=== PATIENT | female | born 1980 | race Caucasian/White ===

== ENCOUNTER 2020-05-25 20:18 | Emergency (ER) | payer BC, OTHER ==
[2020-05-25 20:39] VITALS: PULSE 68; TEMP 98.6
[2020-05-25 21:14] VITALS: BP 142/92
[2020-05-25 21:21] VITALS: BMI 36.9
[2020-05-25] MEDS ORDERED: KETOROLAC TROMETHAMINE 60 MG/2 ML VIAL IM ONE (21:41)
[2020-05-25] MEDS ORDERED: KETOROLAC TROMETHAMINE 60 MG/2 ML VIAL ONE (21:52)
== END 2020-05-25 22:26 | disposition home or self-care (01) ==
LOC: FER 20:18
PROC: 3E0233Z Introduction of Anti-inflammatory into Muscle, Percutaneous Approach (ICD-10-PCS; principal; 2020-05-25)
DX: S83.91XA Sprain of unspecified site of right knee, initial encounter (principal)
CPT/HCPCS: 73560-TC-RT-FY; 99284-25

== ENCOUNTER 2021-04-06 06:23 | Day surgery (SDC) | payer BC ==
[2021-04-04 10:10] VITALS: BMI 34.3
[2021-04-06] MEDS ORDERED: BUPIVACAINE HCL/PF 0.25% (2.5MG/ML) 10 ML VIAL ONE (07:40)
[2021-04-06] MEDS ORDERED: VANCOMYCIN 1,000 MG VIAL (RESTRICTED TO ID ONLY) ONE (07:40)
[2021-04-06] MEDS ORDERED: EPINEPHrine 1:1,000 1,000 MCG/ML ML ONE (07:40)
[2021-04-06] MEDS ORDERED: BUPIVACAINE LIPOSOME/PF (EXPAREL) 266 MG/20 ML VIAL ONE (07:44)
[2021-04-06] MEDS ORDERED: BUPIVACAINE HCL 50 ML ONE (07:45)
[2021-04-06] MEDS ORDERED: MIDAZOLAM HCL 2 MG/2 ML SINGLE DOSE VIAL ONE (07:45)
[2021-04-06] MEDS ORDERED: fentaNYL CITRATE 250 MCG/5 ML VIAL ONE (07:59)
[2021-04-06] MEDS ORDERED: SUCCINYLCHOLINE CHLORIDE 200 MG/10 ML SYRINGE ONE (07:59)
[2021-04-06] MEDS ORDERED: LIDOCAINE HCL/PF 2% SDV 5ML VIAL ONE (07:59)
[2021-04-06] MEDS ORDERED: LIDOCAINE HCL 2% JELLY (5 ML/TUBE) ONE (07:59)
[2021-04-06] MEDS ORDERED: PROPOFOL 20 ML ONE ×6 (07:59→11:24)
[2021-04-06] MEDS ORDERED: ALBUTEROL SO4 HFA INHALER IH ONE (07:59)
[2021-04-06] MEDS ORDERED: KETOROLAC TROMETHAMINE 30 MG/1 ML VIAL ONE (08:17)
[2021-04-06] MEDS ORDERED: DEXAMETHASONE SOD PHOSPHATE 4 MG/1 ML VIAL ONE (08:17)
[2021-04-06] MEDS ORDERED: ONDANSETRON 4 MG/2 ML VIAL ONE (08:17)
[2021-04-06] MEDS ORDERED: ceFAZolin SODIUM 1 GM VIAL ONE (08:17)
[2021-04-06] MEDS ORDERED: TRANEXAMIC ACID 1000 MG/10 ML VIAL ONE (09:05)
[2021-04-06] MEDS ORDERED: SCOPOLAMINE HYDROBROMIDE 1 PATCH PATCH.TD72 ONE (09:14)
[2021-04-06] MEDS ORDERED: SEVOFLURANE 250 ML BTL ONE (10:57)
[2021-04-06] MEDS ORDERED: METOPROLOL TARTRATE 5 MG/5 ML VIAL ONE (12:35)
[2021-04-06] MEDS ORDERED: GUM MASTIC/STORAX/MSAL/ALCOHOL 1 DRP DROPSBTL MC ONE (12:51)
[2021-04-06] MEDS ORDERED: oxyCODONE HCL 5 MG TABLET PO PRN ×2 (13:25)
[2021-04-06] MEDS ORDERED: ONDANSETRON 4 MG/2 ML VIAL IVPUSH PRN (13:25)
[2021-04-06 13:44] VITALS: TEMP 98.6
[2021-04-06] MEDS ORDERED: oxyCODONE HCL 5 MG TABLET ONE (14:32)
[2021-04-06 15:43] VITALS: BP 126/66; PULSE 86
== END 2021-04-06 16:20 | disposition home or self-care (01) ==
LOC: FASU 06:23
PROVIDERS: ATTEND Orthopaedic Surgery Sports Medicine
PROC: 0SBC4ZZ Excision of Right Knee Joint, Percutaneous Endoscopic Approach (ICD-10-PCS; 2021-04-06)
PROC: 0MRN47Z Replacement of Right Knee Bursa and Ligament with Autologous Tissue Substitute, Percutaneous Endoscopic Approach (ICD-10-PCS; principal; 2021-04-06 08:33)
PROC: 0SBC4ZZ Excision of Right Knee Joint, Percutaneous Endoscopic Approach (ICD-10-PCS; 2021-04-06 08:33)
DX: T84.410A Breakdown (mechanical) of muscle and tendon graft, initial encounter (principal); S83.241A Other tear of medial meniscus, current injury, right knee, initial encounter; S83.281A Other tear of lateral meniscus, current injury, right knee, initial encounter; Y79.8 Miscellaneous orthopedic devices associated with adverse incidents, not elsewhere classified; Y93.9 Activity, unspecified; Y92.9 Unspecified place or not applicable
CPT/HCPCS: 73560-TC-LT-FY; 81025; 88300-TC; 94760